=== PATIENT | female | born 1970 | race Two or more races ===

== ENCOUNTER 2020-12-31 09:45 | Outpatient (CLI) | payer OTHER | END 2020-12-31 10:40 | disposition home or self-care (01) | LOC: SONOGRAMA 09:45 | PROVIDERS: ATTEND Obstetrics & Gynecology Gynecology | DX: N84.0 Polyp of corpus uteri (principal); E55.9 Vitamin D deficiency, unspecified; N60.11 Diffuse cystic mastopathy of right breast; N60.12 Diffuse cystic mastopathy of left breast; E66.9 Obesity, unspecified; D25.2 Subserosal leiomyoma of uterus ==